=== PATIENT | female | born 1990 | race Caucasian/White ===

== ENCOUNTER 2020-05-03 21:23 | Emergency (ER) | payer OTHER, SELFPAY ==
--- NOTE | 2020-05-03 | XR_ITS ---
EXAMINATION: XR KNEE, RIGHT CLINICAL INFORMATION: Pain status post fall COMPARISON: None TECHNIQUE: Four views of the right knee. FINDINGS: Bones and soft tissues are normal. No fracture or joint effusion. Alignment is anatomic. Joint spaces are well maintained. No abnormal soft tissue calcification. XR/XR knee RT 4V IMPRESSION: Normal right knee.
[2020-05-03 21:27] VITALS: BP 133/64; PULSE 128; RESP 16; TEMP 37.4; O2SAT 99; BMI 39.0
[2020-05-03] MEDS: Ibuprofen 600 MG TABLET PO (21:49)
--- NOTE | 2020-05-03 22:16 | ED.WOUNDLAC ---
HPI - Wound/Laceration General Chief Complaint: Wound/Laceration Stated Complaint: Fall Time Seen by Provider: 05/03/20 22:12 Source: patient Mode of arrival: ambulatory Limitations: no limitations History of Present Illness HPI narrative: 29-year-old female who presents with having slipped on a ramp and hit her right lower leg without striking her head and denies any loss of consciousness. She states she does not know when her last tetanus vaccination was. In addition, she denies any numbness / tingling/ weakness distal to the injury. Related Data Allergies Allergy/AdvReac Type Severity Reaction Status Date / Time bupropion [From WELLBUTRIN] Allergy Unknown UNKNOWN Unverified 03/07/20 16:16 carbamazepine [From TEGRETOL] Allergy Unknown UNKNOWN Unverified 03/07/20 16:16 quetiapine [From SEROQUEL] Allergy Unknown UNKNOWN Unverified 03/07/20 16:16 sulfamethoxazole Allergy Unknown ANAPHYLAXIS Unverified 03/07/20 16:16 [From BACTRIM] trimethoprim [From BACTRIM] Allergy Unknown ANAPHYLAXIS Unverified 03/07/20 16:16 ziprasidone [From GEODON] Allergy Unknown UNKNOWN Unverified 03/07/20 16:16 risperidone [From RISPERDAL] AdvReac Mild weight gain Unverified 03/07/20 16:16 Review of Systems Review of Systems: Pertinent positives and negatives as stated in HPI 10 point review of systems otherwise negative. PMFSH Past Medical History Source: nursing notes reviewed Social History Social History Alcohol intake: never Smoked in Last 30 Days: No Use of substances other than those prescribed or required for medical reasons: No Advance Directives: No Advance Directives Information Provided: Yes Physical Exam Vital Signs: Vital Signs: Last Vital Signs Temp 99.4 F 05/03/20 21: Pulse 128 H 05/03/20 21:27 Resp 16 05/03/20 21:27 BP 133/64 05/03/20 21:27 Pulse Ox 99 05/03/20 21:27 Body Mass Index 39.0 VITAL SIGNS: Reviewed. GENERAL: Well developed, well nourished, in no acute distress. HEAD: Normocephalic/atraumatic, EYES: PERRLA, EOMI intact without pain, no nystagmus/pallor/icterus noted EARS: Ext canals without abnormality, TMs non-bulging and non-erythematous NOSE: Nares patent bilateral OROPHARYNX: no oral lesions noted, posterior pharynx clear and non-erythematous without noted tonsillar enlargement/erythema/exudates NECK: Supple, no adenopathy LUNGS: Normal breath sounds. No adventitious sounds or accessory muscle use. SpO2<99> CARDIOVASCULAR: Regular rate and rhythm without noted murmurs, no JVD or lower extremity edema. ABDOMEN: Soft, non-tender, non-distended with bowel sounds. No rigidity. No guarding. No palpable masses or hernias noted MUSCULOSKELETAL: No tenderness, deformities, or effusions noted on gross inspection. EXTREMITIES: No cyanosis, clubbing or edema; RLE: 3 cm linear laceration with good hemostasis on the anterior aspect of the lower leg with neurovascular and tendinous structures intact. There is no noted deformity, contusion. SKIN: Inspection of the skin reveals no rashes, ulcerations, jaundice, pallor, or petechiae. NEUROLOGIC: Alert and oriented x 4. Strength and sensation to light touch were grossly intact x 4. Course Course Course Narrative: This is a 29-year-old female with history and clinical presentation consistent with superficial laceration to the right lower leg with good hemostasis. Patient received the Tdap and the laceration was repaired without complications please see the procedure note for details and patient was discharged in stable condition back to her intermediate. Procedures Laceration Laceration 1: Site: lower extremity Side (If applicable): right Size (cm): 3 Description: linear Depth: simple, single layer Local Anesthetic: lidocaine 2% Amount of anesthesia used (mL): 2 Pre-repair: wound explored and irrigated extensively Skin layer closed with: nylon Size (cm): 3-0 Number of sutures: 3 Technique: simple, interrupted Discharge Plan Discharge Clinical Impression: Laceration Patient Disposition: Home, Self-Care Instructions: Laceration (ED) Additional Instructions: 1. May cleanse area with soap and water and gently blot dry with application of antibiotic ointment afterwards. Please avoid submersing the wound in water for more than 5-10 minutes. 2. Have the sutures removed in 7 days by either your primary care provider or returning to this emergency room. 3. You should return to the emergency room if you develop fevers, chills, pus draining from the wound. The patient and/or family acknowledge understanding of results (as applicable), diagnosis, treatment plan, need for follow up, and symptoms that should prompt a return to the emergency room. Referrals: Physician,Unknown [Primary Care Provider] - 2 days ( Suture removal)
[2020-05-03] MEDS: Acetaminophen 325 MG TABLET 975 MG PO (22:23)
[2020-05-03] MEDS: Lidocaine HCl 2 % MPF 5 ML VIAL INFILTRATI (22:28)
--- NOTE | 2020-05-03 23:23 | PC.NURSE ---
PT PAPERWORK FILLED OUT BY DR LAMBERT AND SENT BACK WITH PT FOR [facility]. FACILITY NOTIFIED PT IS READY FOR COMPLETION MANAGER.
== END 2020-05-03 23:36 | disposition home or self-care (01) ==
PROVIDERS: Emergency Provider Student in an Organized Health Care Education/Training Program
DX: S81.811A Laceration without foreign body, right lower leg, initial encounter (principal); S80.811A Abrasion, right lower leg, initial encounter; M79.604 Pain in right leg; W01.0XXA Fall on same level from slipping, tripping and stumbling without subsequent striking against object, initial encounter; Y93.9 Activity, unspecified; Y92.9 Unspecified place or not applicable; Y99.8 Other external cause status; Z23 Encounter for immunization
CPT/HCPCS: 12002; 73564; 90471; 90715; 99284

== ENCOUNTER 2020-06-10 17:44 | Outpatient (REF) | payer OTHER, SELFPAY | END 2020-06-10 17:45 | disposition home or self-care (01) | LOC: HO.LAB 17:44 | PROVIDERS: Visit Provider Internal Medicine | DX: Z20.828 Contact with and (suspected) exposure to other viral communicable diseases (principal) | CPT/HCPCS: C9803; U0003 ==

== ENCOUNTER 2021-06-27 20:47 | Emergency (ER) | payer OTHER, SELFPAY ==
[2021-06-27 21:01] VITALS: BP 116/84; BP 130/70; PULSE 110; PULSE 125; RESP 18; TEMP 37; O2SAT 98; O2SAT 99; BMI 33.0
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
[2021-06-27 21:41] LABS: Appearance Urine CLEAR; Color Urine YELLOW; Glucose Urine UA NEG (NEG); Leukocyte Esterase Urine NEG (NEG); MANUAL DIFF FLAG NO; Nitrite Urine NEG (NEG); Urine Blood NEG (NEG); Urine Ketones NEG (NEG); Urine Protein NEG (NEG-TRACE)
[2021-06-27 21:45] LABS: UPreg QC Valid YES; Urine Pregnancy NEGATIVE (NEGATIVE)
[2021-06-27 21:47] LABS: Basophils Percent Auto 0.1 % (0-2); Hematocrit 40.6 % (37.0-47.0); Hemoglobin 12.8 g/dl (12.0-16.0); Imm Gran Abs Auto 0.05 X10*3/uL (0.00-0.03); Imm Gran Pct Auto 0.3 % (0.0-0.4); Lymphocytes Percent Auto 12.9 % (20-40); Mean Corpuscular HGB Conc 31.5 g/dl (31.0-35.0); Mean Corpuscular Hemoglobin 26.5 pg (27.0-33.0); Mean Corpuscular Volume 84.1 fL (80.0-98.0); Mean Platelet Volume 10.3 fL (9.4-12.3); Monocytes Absolute Auto 1.1 X10*3/uL (0.1-1.2); Monocytes Percent Auto 6.7 % (2-11); Neutrophils Absolute Auto 12.4 x10*3/uL (2.0-8.3); Platelet Count 251 X10*3/uL (160-400); Red Blood Count 4.83 X10*6/uL (4.20-5.50); Red Cell Distribution Width 14.1 % (11.0-16.0); White Blood Count 15.6 X10*3/uL (4.8-10.8)
--- NOTE | 2021-06-27 21:49 | PC.NURSE ---
Contact from [facility]; Carlo Langford - [phone].
[2021-06-27 21:58] LABS: COVID-19 Test Negative (Negative)
[2021-06-27 22:10] LABS: Amphetamine Screen Urine Not Detected (Not Detect); Barbiturates, Urine Not Detected (Not Detect); Benzodiazepines Screen Urine Not Detected (Not Detect); Cannabinoid Screen Urine Not Detected (Not Detect); Cocaine Screen Urine Not Detected (Not Detect); Fentanyl, urine Not Detected (Not Detect); Opiate Screen Urine Not Detected (Not Detect); Phencyclidine Screen Urine Not Detected (Not Detect)
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
[2021-06-27 22:12] LABS: Alanine Aminotransferase 34 U/L (0-31); Albumin Level 4.3 g/dL (3.5-5.0); Alkaline Phosphatase 105 U/L (39-117); Anion Gap 14 (12-20); Aspartate Amino Transferase 22 U/L (5-31); Bilirubin Direct 0.2 mg/dL (0.0-0.5); Bilirubin Total 0.2 mg/dL (0.0-1.0); Blood Urea Nitrogen 12 mg/dL (9-16); Calcium 9.5 mg/dL (8.4-10.2); Carbon Dioxide 28 mmol/L (22-29); Chloride 101 mmol/L (96-108); Creatinine Clr Calc Pharmacy 78.2; Estimated Glomerular Filt Rate > 60; Glucose Random 107 mg/dL (60-115); Lipase 47 U/L (8-78); Potassium 4.2 mmol/L (3.3-5.1); Sodium 139 mmol/L (135-145); Total Protein 7.9 g/dL (6.5-8.0)
--- NOTE | 2021-06-27 23:29 | PC.NURSE ---
Patient calm and quiet at this time, no distress observed/reported, BHN referral completed/confirmed by N database marketing specialist Radha, pending ETA, will continue to monitor
--- NOTE | 2021-06-27 23:45 | PC.NURSE ---
Patient med rec completed, patient is on Clozapine 200 mg BID, [facility] from [facility] doesn't tell whether she is taking her medication or not, it just simple list of medication. Kelsie willa's primary contact center associate called at [phone], left voice mail to call us back with medication information, will continue to monitor
[2021-06-28] MEDS: Ibuprofen 600 MG TABLET PO (00:16)
--- NOTE | 2021-06-28 05:45 | PC.NURSE ---
Patient slept through the night, no distress observed/reported except headache for which patient received 600 mg Ibuprofen with + effect, DENISA screened the patient, disposition discharge back to assisted, assisted agreed to address her concern, assisted will come in the morning to bring patient to assisted, no ETA at this time, behavior appropriate, will continue to monitor.
[2021-06-28] MEDS: cloZAPine 100 MG TABLET 200 MG PO (08:32)
--- NOTE | 2021-06-28 09:40 | MHC.CARE ---
CARE Team spoke with staff who reported they will be in to pickling grader patient.
== END 2021-06-28 10:20 | disposition home or self-care (01) ==
PROVIDERS: Emergency Provider Emergency Medicine
DX: F41.9 Anxiety disorder, unspecified (principal); F63.81 Intermittent explosive disorder; R45.851 Suicidal ideations; Z20.822 Contact with and (suspected) exposure to COVID-19; Z72.89 Other problems related to lifestyle; Z59.2 Discord with neighbors, lodgers and landlord
CPT/HCPCS: 36415; 80048; 80076; 80307; 81003; 81025; 83690; 85025; 87635; 99284

== ENCOUNTER 2021-07-02 12:56 | Outpatient (REF) | payer OTHER, SELFPAY ==
[2021-07-02 14:14] LABS: Binax Internal Control QC Valid; Binax Now Covid-19 Ag Negative (Negative)
== END 2021-07-02 12:57 | disposition home or self-care (01) ==
LOC: HO.LAB 12:56
PROVIDERS: Visit Provider Internal Medicine
DX: Z20.822 Contact with and (suspected) exposure to COVID-19 (principal)
CPT/HCPCS: C9803

== ENCOUNTER 2021-09-02 18:10 | Emergency (ER) | payer OTHER, SELFPAY ==
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
[2021-09-02 18:22] VITALS: BP 104/55; PULSE 110; RESP 18; TEMP 36.7; O2SAT 95
--- NOTE | 2021-09-02 18:42 | MHC.CARE ---
DENISA Mena completed for Crisis Consult.
[2021-09-02 18:46] VITALS: BP 104/58; PULSE 110; RESP 18; TEMP 36.7; O2SAT 95; BMI 39.0
[2021-09-02] MEDS: Acetaminophen 325 MG TABLET 975 MG PO (19:36)
[2021-09-02] MEDS: Ondansetron ODT 4 MG TAB.RAPDIS TRANSLINGU (19:36)
--- NOTE | 2021-09-02 19:36 | PC.NURSE ---
REPORT GIVEN TO NIKKO COTO IN POD. PT TO MOVE TO POD. WAITING [facility] CONSULT.
[2021-09-02 20:18] LABS: COVID-19 Test Negative (Negative)
== END 2021-09-02 20:23 | disposition home or self-care (01) ==
PROVIDERS: Physician Assistant Medical; Emergency Provider Emergency Medicine; PCP Family Medicine
DX: R51.9 Headache, unspecified (principal); Y04.2XXA Assault by strike against or bumped into by another person, initial encounter; Z20.822 Contact with and (suspected) exposure to COVID-19; Z72.89 Other problems related to lifestyle; Y93.89 Activity, other specified; Y92.049 Unspecified place in boarding-house as the place of occurrence of the external cause; Y99.9 Unspecified external cause status
CPT/HCPCS: 87635; 99283; 99284